=== PATIENT | female | born 1975 | race Asian ===

== ENCOUNTER 2023-11-10 16:13 | Emergency (ER) | payer OTHER ==
[~2023-11-10] VITALS: Ht 165.1 cm; Wt 56.8 kg
[2023-11-10] MEDS ORDERED: Ibuprofen 600 MG TAB PO ONE (17:45)
[2023-11-10 18:58] VITALS: BP 115/80; PULSE 75; TEMP 98.2
== END 2023-11-10 18:58 | disposition home or self-care (01) ==
LOC: COL.ER 16:13
DX: J20.9 Acute bronchitis, unspecified (principal)